=== PATIENT | female | born 1975 | race Caucasian/White ===

== ENCOUNTER 2018-02-23 14:31 | Emergency (ER) | payer OTHER ==
[~2018-02-23] VITALS: Ht 175.3 cm; Wt 70.8 kg
[2018-02-23 14:36] VITALS: BP 111/73
--- NOTE | 2018-02-23 15:27 | ED SKIN/ALLERGY COMPLAINT ---
History of Present Illness General Chief Complaint: General Adult Stated Complaint: BREAST PAIN Source: patient, old records Exam Limitations: no limitations Vital Signs & Intake/Output Vital Signs & Intake/Output Vital Signs Date Time Temp Pulse Resp B/P B/P Pulse O2 O2 Flow FiO2 Mean Ox Delivery Rate 02/23 1436 98.8 82 18 111/73 98 Room Air Allergies Coded Allergies: No Known Allergies (02/23/18) Triage Note: 42 YO FEMALE TO TRIAGE C/O PAIN UNDERNEATH BILATERAL BREASTS, STATES SHE HAD BREAST IMPLANTS APPROX 1 MONTH AGO IN [place]. STATES SHE WENT TO THE WALK IN WHO ADVISED HER TO COME HERE FOR EVAL OF INCISIONS. UNABLE TO VISUALIZE IN TRIAGE. Triage Nurses Notes Reviewed? yes : No Patient currently breastfeeds: No HPI: 42F PMH scoliosis, recent back surgery, had breast augmentation surgery 1 month ago in [place], presents with irritation and pain at the surgical site on both breasts. The discomfort has worsened over the past 2 days, went to urgent care, who sent her here. She denies breast pain, only discomfort at the surgical sites. There is no warmth or erythema. She denies fever, chills, n/v, decreased appetite, chest pain, SOB, palpitations, abdominal pain, diarrhea, dysuria. Past History Travel History Traveled to [place] past 21 day No Medical History Any Pertinent Medical History? see below for history Neurological: NONE EENT: NONE Cardiovascular: NONE Respiratory: NONE Gastrointestinal: NONE Hepatic: NONE Renal: NONE Musculoskeletal: NONE Psychiatric: NONE Endocrine: NONE Blood Disorders: NONE Cancer(s): NONE [employer]/Reproductive: NONE Surgical History Surgical History: non-contributory Psychosocial History What is your primary language French Tobacco Use: Never used Family History Hx Contributory? No Review of Systems Review of Systems Constitutional: Reports: no symptoms. EENTM: Reports: no symptoms. Respiratory: Reports: no symptoms. Cardiovascular: Reports: no symptoms. GI: Reports: no symptoms. Genitourinary: Reports: no symptoms. Musculoskeletal: Reports: no symptoms. Skin: Reports: no symptoms. Neurological/Psychological: Reports: no symptoms. Hematologic/Endocrine: Reports: no symptoms. Immunologic/Allergic: Reports: no symptoms. All Other Systems: Reviewed and Negative Physical Exam Physical Exam General Appearance: well developed/nourished, mild distress Head: atraumatic Eyes: Bilateral: normal appearance. Ears, Nose, Throat: normal ENT inspection, hearing grossly normal Neck: normal inspection, supple Respiratory: normal breath sounds Cardiovascular: regular rate/rhythm Gastrointestinal: soft, non-tender Back: normal inspection Extremities: normal inspection, normal range of motion, no edema Neurologic/Psych: awake, alert, oriented x 3, normal mood/affect Skin: well healed surgical scars around both nipples, some skin shearing at the sites that had surgical tape on it, no erythema, warmth, tenderness, or fluctuance Lymphatic: no anterior cervical sunni Progress Differential Diagnosis: abscess/cellulitis, allergic reaction, anaphylaxis, angioedema, asthma, contact dermatitis, drug reaction, erythema multiforme, lyme disease, meningitis/sepsis, piyriasis rosea, RMSF, scarlet fever, shingles, syphilis/gonococcemia, toxic shock syndrome, urticaria Plan of Care: No evidence of cellulitis or surgical site infection. Likely irritation and skin tears from surgical tape not being removed for 1 month. WIll discharge home and follow up with her surgeon, Kenneth for skin tears. Departure Departure Disposition: HOME OR SELF CARE Condition: Stable Clinical Impression Primary Impression: Skin tear Referrals: Unknown (PCP/Family) Additional Instructions: Follow up with your PCP. Keep the area clean and dry. You can use Xeroform with gauze on top if there is irritation. Wash with soapy water. Return to ER if any new or worsening symptoms. Departure Forms: Customer Survey General Discharge Information
== END 2018-02-23 15:49 ==
LOC: ERH 14:31
DX: N64.4 Mastodynia (principal)